=== PATIENT | female | born 1925 | race African-American/Black ===

== ENCOUNTER 2016-03-20 13:03 | Observation (INO) ==
--- NOTE | 2016-03-20 13:38 | EKG Report ---
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
--- NOTE | 2016-03-20 13:50 | XRay Report ---
Referring Physician: Tboy Rosario Exam: XR chest 1V portable Date: March 20, 2016 at 1:27 PM Reason: Syncope Comparison: Chest one view portable February 20, 2016 Findings: A right-sided dialysis catheter is again present. The cardiac silhouette is normal in size. There is minimal atelectasis at the lung bases, but no pneumothorax or definite pleural fluid is identified. No acute osseous process is seen. Kyphoplasty/vertebroplasty change is noted at the lower thoracic and upper lumbar spine. Impression: Minimal bibasilar atelectasis PROCEDURE INTERPRETED AT [facility] DEPARTMENT OF RADIOLOGY Final Report Signed by: Dr. Jenni Farmer
[2016-03-20 13:55] LABS: Basophils % 0.2 % (0.0-0.8); Eosinophils % 0.1 % (0.00-10.9); Hematocrit 35.5 VOL% (35.7-47.0); Hemoglobin 12.2 GM/DL (12.0-16.0); Immature Granulocytes % 0.3 %; Immature Granulocytes Absolute 0.04 #; Lymphocytes # 1.1 10*3/uL (1.4-4.0); Lymphocytes % 9.1 % (21.3-54.2); Mean Corpuscular HGB Conc 34.4 GM/DL (32-36); Mean Corpuscular Hemoglobin 30 PG (27-34); Mean Corpuscular Volume 88.5 FL (87-102); Mean Platelet Volume 12.8 FL (9.6-12.0); Monocytes # 0.8 10*3/uL (0.11-0.8); Monocytes % 6.8 % (1.7-12.7); Neutrophils # 9.7 10*3/uL (1.4-7.4); Neutrophils % 83.5 % (38.7-73.9); Platelet Count 96 10*3/uL (130-400); Red Blood Count 4.01 10*6/uL (3.8-5.5); White Blood Count 11.6 10*3/uL (4.5-13.71)
[2016-03-20 15:57] LABS: Calcium 8.6 MG/DL (8.5-10.1); Magnesium 2.4 MG/DL (1.8-2.4); Potassium 5.3 MMOL/L (3.5-5.1)
[2016-03-20] MEDS ORDERED: ALBUTEROL 2.5 MG/3 ML NEB RESP TX STA (16:28)
--- NOTE | 2016-03-20 16:40 | Emergency Department Note ---
Gadiel Liu Brooke, am scribing for, and in the presence of, Toby Rosario M.D. 13:42. Abraham Liu Howard T, M.D., personally performed the services described in this documentation, ascribed by Teresa Ramesh in my presence, and it is both accurate and complete [id number] . Arrival - Arrival Chief Complaint: Syncope Stated Complaint: Syncope ED Nursing Triage Note: Brought in by EMS-sent from dialysis for further evaluation of syncopal episode approximately 1230 today. Nursing staff reports that patient's BP dropped to 50/33 before she passed out. Mode of Arrival: Stretcher Limitations: No Limitations Source: Patient, Family, RN Notes Reviewed Time Seen by Provider: 03/20/16 13:21 - History of Present Illness HPI Narrative: Patient is a 89 year old female who presents to the ED following a syncopal episode that happened while at dialysis today. Patient says she had just started her treatment when it happened. She says she was eating some chips and then was waking up after the syncopal episode. She says she feels "pretty good" now and denies any trouble breathing or any pain. She says she has had syncopal episodes in the past where her blood pressure was low. Patient says sometimes, after dialysis, she does feel dizzy. Patient says she has had a chest cold for the past week and missed her dialysis treatment on Thursday. She says she has a productive cough but denies having any fever or vomiting. She does not have any lung problems that she knows of. Patient has been eating and drinking good until breakfast this morning. Patient has PMHx of CAD, HTN, RA, and renal failure. She gets dialyzed on Thursday, , and Thursday. Date of Last Menstrual Period: hysterectomy Allergies/Adverse Reactions: Allergies Allergy/AdvReac Type Severity Reaction Status Date / Time Iodinated Contrast Media - AdvReac Unknown Unknown/Unable Verified 10/22/15 12: 20 IV Dye to obtain Home Medications: Home Medications Medication Instructions Recorded Confirmed Type Levothyroxine Tab [Synthroid Tab] 50 mcg PO DAILY@0700 06/14/14 02/20/16 History Magnesium 64 mg PO DAILY 06/14/14 02/20/16 History Omeprazole [Prilosec] 20 mg PO DAILY 06/19/14 02/20/16 History Aspirin [Ecotrin] 81 mg PO QOTHER DAY 09/18/15 02/20/16 History fentaNYL [Fentanyl 25 mcg/hr Patch] 25 meq TRANSDERM Q3DAY 09/18/15 02/20/16 History Meclizine [Antivert] 25 mg PO Q6H PRN #30 tablet 09/24/15 02/20/16 Rx Nitroglycerin Sl Tab [Nitrostat] 0.4 mg SL Q5M PRN #0 tablet 09/24/15 02/20/16 Rx Amlodipine Besylate [Amlodipine 5 mg PO DAILY 11/01/15 02/20/16 History Besylate] Calcium Acetate 667 meq PO TID 11/01/15 02/20/16 History Review of System - Review of System 12 point system: reviewed and no additional remarkable complaints except as stated - Review of System Constitutional: Absent: fever Head/Ears/Nose/Throat: Present: other (chest cold) Respiratory: Present: cough (productive). Absent: respiratory distress Cardiovascular: Present: syncope Skin: Absent: rash Medical,Surgical,& Family Hx - Medical History Cardio: History of: CAD, Hypertension No history of: Aneurysm, Cardiac Dysrhythmia, Cerebrovascular Disease, Congenital Heart Disease, CHF, [place], Pacemaker, PVD, Valvular Heart Disease, Cardiovascular Problems Neurology: No history of: Seizures Endocrine: No history of: Dyslipidemia Rheumatology: History of;: Rheumatoid Arthritis Renal: History of: Dialysis (,,Thu), Renal Failure, Renal Problems Gastrointestinal: No history of: Gastrointestinal Bleed Musculoskeletal: No history of: Amputation Hematology: History of: Anemia Other: History of: Skin Problems (DRY RASH) - Surgical History Cardiac Surgeries: Sugical HX of: Cardiac Catheterization (STENT), Vascular Access Devices Patient Denies: Cardiac Surgery Thoracic Surgeries: Patient denies;: Lobectomy Neurologic Surgeries: Patient denies: Neurologic Surgery HEENT Surgeries: Surgical HX of: Thyroid Surgery Patient denies: Eye Surgery, Tonsilectomy & Adenoidectomy Abdominal Surgeries: Patient denies: Abdominal Surgery Reproductive Surgeries: Surgical HX of;: Gynecologic Surgery, Hysterectomy Patient denies;: Genitourinary Surgery - Family History Family History: Reports;: Family Hypertension - Social History Smoking Status: Never smoker Frequency of Alcohol Use: None Type of Drug Use: None Exam Vital Signs: Vital Signs Temperature 97 F L 01/05/17 13:27 Pulse Rate 80 03/20/16 15:30 Respiratory Rate 20 03/20/16 15:30 Blood Pressure 153/61 03/20/16 15:30 O2 Sat by Pulse Oximetry 100 03/20/16 15:30 - General General appearance: alert, in no apparent distress - Head Head exam: Present: atraumatic, normocephalic - Eye Eye exam: Present: normal appearance, PERRL, EOMI - ENT ENT exam: Present: normal exam - Neck Neck exam: Present: normal inspection - Chest Chest inspection: Present: normal inspection, symmetric chest wall rise - Respiratory Respiratory exam: Present: other (coarse breath sounds on left) - Cardiovascular Cardiovascular exam: Present: regular rate, normal rhythm, murmur (systolic) - Abdominal Exam Abdominal exam: Present: soft. Absent: distention, tenderness - Extremities Exam Extremities exam: Present: normal inspection - Back Exam Back exam: Present: normal inspection - Neurological Exam Neurological exam: Present: alert, oriented X3 - Psychiatric Psychiatric exam: Present: normal affect, normal mood - Skin Skin exam: Present: warm, dry, intact, normal color Course Course Narrative: Medical decision making: Patient continues to feel comfortable but family notes she has been wheezing more recently so we will do some breathing treatments and discussed with hospitalist for overnight observation considering she missed the last 2 dialysis appointments and had syncopal episode with low blood pressure earlier today. Results - Labs CBC & BMP: 03/20/16 13:18 03/20/16 13:18 Lab Results: I have reviewed the patients labs Labs: Laboratory Tests 03/20/16 13:18 Hct 35.5 L Plt Count 96 L MPV 12.8 H Neut % (Auto) 83.5 H Lymph % (Auto) 9.1 L Neut # (Auto) 9.7 H Lymph # (Auto) 1.1 L Laboratory Tests 03/20/16 13:18 Potassium 5.3 H Anion Gap 21.3 H BUN 52 H Creatinine 8.50 H - Diagnostic Findings Procedure: Chest x-ray: report reviewed by me (Minimal bibasilar atelectasis.) Disposition Clinical Impression: Syncope due to orthostatic hypotension Case discussed with: patient, patient's family Disposition: Disch/Xfer-Ipshort Term Hos Condition: Stable Time of Disposition: 16:40
[2016-03-20 16:44] LABS: Band Neutrophils 6 % (0-10); Lymphocytes 7 % (20-55); Platelet Estimate Normal; Segmented Neutrophils 81 % (50-85); Total Cells Counted 100
[2016-03-20] MEDS ORDERED: ALBUTEROL/IPRATROPIUM 3 ML NEB RESP TX PRN (16:48)
[2016-03-20] MEDS ORDERED: ONDANSETRON 4 MG/2 ML VIAL IV PRN (16:48)
[2016-03-20] MEDS ORDERED: ACETAMINOPHEN 325 MG TABLET PO PRN (16:48)
[2016-03-20] MEDS ORDERED: NITROGLYCERIN SL 0.4 MG TABLET SL PRN (17:08)
--- NOTE | 2016-03-20 17:15 | Hospitalist History & Physical ---
<Nicole Mcknight - Last Filed: 03/20/16 17:13> Assessment and Plan - Time spent with patient Time spent with patient: Greater than 30 minutes (1) Bronchitis Status: Acute Assessment and plan: duonebs and azithromycin Current Visit: Yes (2) HTN (hypertension) Status: Acute Assessment and plan: continue home meds Current Visit: Yes (3) Syncope due to orthostatic hypotension Status: Acute Assessment and plan: occurred during dialysis today. Now resolved. Current Visit: Yes (4) Lethargy Status: Acute Current Visit: No (5) End stage renal disease Status: Chronic Assessment and plan: Consult Dr. Damon. Consider dialysis during hospital stay due to patient missing dialysis thursday and half of today. Current Visit: No History of Present Illness History of present illness: Ms. Akins is a 89 year old female Home Medications Medication Instructions Recorded Confirmed Type RX: Levothyroxine Tab [Synthroid 50 mcg PO DAILY@0700 06/14/14 03/20/16 History Tab] RX: Magnesium 64 mg PO DAILY 06/14/14 03/20/16 History RX: Omeprazole [Prilosec] 20 mg PO DAILY 06/19/14 03/20/16 History RX: Aspirin [Ecotrin] 81 mg PO QOTHER DAY 09/18/15 03/20/16 History RX: Meclizine [Antivert] 25 mg PO Q6H PRN #30 tablet 09/24/15 03/20/16 Rx RX: Nitroglycerin Sl Tab 0.4 mg SL Q5M PRN #0 tablet 09/24/15 03/20/16 Rx [Nitrostat] RX: Calcium Acetate 1,334 mg PO TID W/MEALS 11/01/15 03/20/16 History HYDROcodone/ACETAMIN 7.5-325 1 tablet PO Q8H PRN 03/20/16 03/20/16 History [[place] 7.5-325] Allergies Allergy/AdvReac Type Severity Reaction Status Date / Time Iodinated Contrast Media - AdvReac Unknown Unknown/Unable Verified 10/22/15 12: 20 IV Dye to obtain Medical,Surgical,& Family Hx - Medical History Cardio: History of: CAD, Hypertension No history of: Aneurysm, Cardiac Dysrhythmia, Cerebrovascular Disease, Congenital Heart Disease, CHF, [place], Pacemaker, PVD, Valvular Heart Disease, Cardiovascular Problems Neurology: No history of: Seizures Endocrine: No history of: Dyslipidemia Rheumatology: History of;: Rheumatoid Arthritis Renal: History of: Dialysis (,,Thu), Renal Failure, Renal Problems Gastrointestinal: No history of: Gastrointestinal Bleed Musculoskeletal: No history of: Amputation Hematology: History of: Anemia Other: History of: Skin Problems (DRY RASH) - Surgical History Cardiac Surgeries: Sugical HX of: Cardiac Catheterization (STENT), Vascular Access Devices Patient Denies: Cardiac Surgery Thoracic Surgeries: Patient denies;: Lobectomy Neurologic Surgeries: Patient denies: Neurologic Surgery HEENT Surgeries: Surgical HX of: Thyroid Surgery Patient denies: Eye Surgery, Tonsilectomy & Adenoidectomy Abdominal Surgeries: Patient denies: Abdominal Surgery Reproductive Surgeries: Surgical HX of;: Gynecologic Surgery, Hysterectomy Patient denies;: Genitourinary Surgery - Family History Family History: Reports;: Family Hypertension - Social History Smoking Status: Never smoker Frequency of Alcohol Use: None Type of Drug Use: None 12 point system: reviewed and no additional remarkable complaints except as stated - Constitutional Constitutional: Present: as per HPI, fatigue, lethargy, malaise - Cardiovascular Cardiovascular: Present: dyspnea Exam - Constitutional Vitals: Period Temp Pulse Resp BP Sys/Alcazar Pulse Ox Last 24 Hr 97 F-97.0 F 79-87 17-23 146-174/61-74 100-100 Results - Labs CBC & BMP: 03/20/16 13:18 03/20/16 13:18 Lab Results: I have reviewed the past 24 hour labs Quality Measures - VTE Contraindication to Pharmacological VTE Prophylaxis: Already on Theraputic Agent , No Prophylaxis Needed <Zhane Savage - Last Filed: 03/21/16 07:45> Assessment and Plan - Time spent with patient Time spent with patient: Greater than 30 minutes (1) Syncope due to orthostatic hypotension Status: Acute Assessment and plan: I have seen and examined this patient independently in the emergency department in room 9. Her family members were at the bedside including both sons and a [id number]. The patient's being admitted to observation. Treatment for bronchitis has been started with duo nebs and azithromycin. Consultation for nephrology Dr. Damon has been placed. We are recommending completion of her dialysis treatment to ensure no fluid overload is contributing to her cough or shortness of breath. Carotid ultrasound has also been ordered. I had a lengthy discussion with the patient and her family at the bedside in the emergency department regarding her admission to observation status. They verbalized their understanding and agreed to move forward. Current Visit: Yes (2) End stage renal disease Status: Chronic Current Visit: No (3) Bronchitis Status: Acute Current Visit: Yes (4) HTN (hypertension) Status: Acute Current Visit: Yes Qualifiers: Hypertension type: essential hypertension Qualified Code(s): I10 - Essential (primary) hypertension History of Present Illness Chief complaint: syncope History of present illness: Ms. Akins is a 89 year old female that presented to the emergency department via ambulance after she had a syncopal episode in dialysis. The patient is typically dialyzed on Thursday and Thursday. Her child advocate is Dr. Kurt Damon. She reports starting her dialysis treatment which usually runs for approximately 4 hours. [place] through dialysis she had a drop in her blood pressure and passed out. She remembers eating some chips and the next thing she knew she woke up laying flat with nurses surrounding her. There was no trauma as she was sitting in her dialysis chair when she had syncope. She missed her Thursday dialysis session. She reports having a cough and cold with some congestion over the last week. Her family reports that she has had some frequent syncope episodes at home over the last several months. Ms. Rizzo is elderly and frail. I've been consulted from the emergency department to admit her to the hospital for further evaluation of her syncope as well as consultation with nephrology regarding completion of her dialysis treatment. There is no evidence of pneumonia on chest x-ray and her white blood cell count is normal. She does not appear septic. 12 point system: reviewed and no additional remarkable complaints except as stated - Respiratory Respiratory: Present: cough, dyspnea - Neurological Neurological: Present: syncope Exam - Constitutional Vitals: Period Temp Pulse Resp BP Sys/Alcazar Pulse Ox Last 24 Hr 73-83 18-22 137-174/56-66 100-100 General appearance: no acute distress - Head Head exam: Present: normal inspection, normocephalic, atraumatic - Eye Eye exam: Present: EOMI Pupils: Present: ESTHER - ENT ENT exam: Present: normal exam - Respiratory Respiratory exam: Present: rales, rhonchi - Cardiovascular Cardiovascular exam: Present: regular rate and rhythm - GI/Abdominal GI/Abdominal exam: Present: normal bowel sounds, soft. Absent: tenderness, rebound - Extremities Exam Extremities exam: Absent: edema - Neurological Exam Neurological exam: Present: alert, oriented X3 - Psychiatric Psychiatric exam: Present: normal affect, normal mood - Skin Skin exam: Present: normal color, warm, dry Results - Labs CBC & BMP: 03/21/16 05:00 03/21/16 05:00 Lab Results: I have reviewed the past 24 hour labs
[2016-03-21 05:27] LABS: Basophils % 0.1 % (0.0-0.8); Eosinophils # 0.1 10*3/uL (0.0-0.87); Eosinophils % 0.7 % (0.00-10.9); Hematocrit 32.2 VOL% (35.7-47.0); Hemoglobin 10.7 GM/DL (12.0-16.0); Immature Granulocytes % 0.8 %; Immature Granulocytes Absolute 0.08 #; Lymphocytes # 1.2 10*3/uL (1.4-4.0); Lymphocytes % 12.1 % (21.3-54.2); Mean Corpuscular HGB Conc 33.2 GM/DL (32-36); Mean Corpuscular Hemoglobin 30 PG (27-34); Mean Corpuscular Volume 89.7 FL (87-102); Mean Platelet Volume 12.6 FL (9.6-12.0); Monocytes # 0.8 10*3/uL (0.11-0.8); Monocytes % 7.8 % (1.7-12.7); Neutrophils # 8.1 10*3/uL (1.4-7.4); Neutrophils % 78.5 % (38.7-73.9); Platelet Count 95 10*3/uL (130-400); Red Blood Count 3.59 10*6/uL (3.8-5.5); Red Cell Distribution Width 16.1 % (9.3-17.3); White Blood Count 10.3 10*3/uL (4.5-13.71)
[2016-03-21 05:49] LABS: Band Neutrophils 2 % (0-10); Lymphocytes 15 % (20-55); Segmented Neutrophils 76 % (50-85); Total Cells Counted 100
[2016-03-21 05:50] LABS: Burr Cells Slight; Elliptocytes Few; Hypochromasia 1+; Macrocytosis Slight; Platelet Estimate Decreased
[2016-03-21 06:09] LABS: Calcium 7.7 MG/DL (8.5-10.1); Potassium 5.5 MMOL/L (3.5-5.1)
[2016-03-21] MEDS: AZITHROMYCIN 250 MG TABLET PO SCH (08:37)
[2016-03-21] MEDS: DOCUSATE SODIUM 100 MG CAPSULE PO PRN (08:38)
[2016-03-21] MEDS: CALCIUM ACETATE 667 MG CAPSULE PO SCH ×3 (08:38→17:26)
[2016-03-21] MEDS: amLODIPine 5 MG TABLET PO SCH (08:38)
[2016-03-21] MEDS: LEVOTHYROXINE 50 MCG TABLET PO SCH (08:39)
[2016-03-21] MEDS: PANTOPRAZOLE 40 MG TABLET PO SCH (08:39)
[2016-03-21] MEDS ORDERED: PANTOPRAZOLE 40 MG TABLET PO SCH (09:00)
--- NOTE | 2016-03-21 09:53 | Hospitalist Progress Note ---
Assessment and Plan (1) Syncope due to orthostatic hypotension Status: Acute Assessment and plan: Consultation for nephrology Dr. Damon has been placed. We are recommending completion of her dialysis treatment to ensure no fluid overload is contributing to her cough or shortness of breath. Carotid ultrasound has also been ordered. Current Visit: Yes (2) End stage renal disease Status: Chronic Current Visit: No (3) Bronchitis Status: Acute Assessment and plan: Continue azithromycin and breathing treatments. Current Visit: Yes (4) HTN (hypertension) Status: Acute Current Visit: Yes Qualifiers: Hypertension type: essential hypertension Qualified Code(s): I10 - Essential (primary) hypertension Hospitalist: Subjective Interval history: Patient seen and examined. No acute events overnight. No further syncopal episodes. Nephrology consult pending. She still has a cough but looks and feels better today. Exam - Constitutional Vitals: Period Temp Pulse Resp BP Sys/Alcazar Pulse Ox Last 24 Hr 98.9 F-99.2 F 69-83 18-22 137-174/56-71 100-100 General appearance: no acute distress - Head Head exam: Present: normal inspection, normocephalic - Respiratory Respiratory exam: Present: rhonchi - Cardiovascular Cardiovascular exam: Present: regular rate and rhythm - GI/Abdominal GI/Abdominal exam: Present: normal bowel sounds, soft. Absent: tenderness, rebound - Extremities Exam Extremities exam: Absent: edema - Neurological Exam Neurological exam: Present: alert, oriented X3 - Psychiatric Psychiatric exam: Present: normal affect, normal mood - Skin Skin exam: Present: normal color, warm Results - Labs CBC & BMP: 03/21/16 05:00 03/21/16 05:00 Lab Results: I have reviewed the past 24 hour labs Quality Measures - VTE Contraindication to Pharmacological VTE Prophylaxis: Already on Theraputic Agent , No Prophylaxis Needed Specialty Discharge - Follow Up or Referrals - Discharge Medications No Action RX: Levothyroxine Tab [Synthroid Tab] 50 mcg PO DAILY@0700 RX: Magnesium 64 mg PO DAILY RX: Omeprazole [Prilosec] 20 mg PO DAILY RX: Aspirin [Ecotrin] 81 mg PO QAM RX: Meclizine [Antivert] 25 mg PO Q6H PRN #30 tablet PRN Reason: Dizziness RX: Nitroglycerin Sl Tab [Nitrostat] 0.4 mg SL Q5M PRN #0 tablet PRN Reason: Chest Pain RX: Calcium Acetate 1,334 mg PO TID W/MEALS HYDROcodone/ACETAMIN 7.5-325 [[place] 7.5-325] 1 tablet PO Q8H PRN PRN Reason: Pain
--- NOTE | 2016-03-21 11:26 | Nephrology Consult Note ---
History of Present Illness Chief complaint: ESRD, syncope History of present illness: Ms. Akins is a 89 year old female with several chronic medical problems including ESRD. She reports a nonproductive cough for several days. She missed dialysis on Thursday. Yesterday she had a syncopal episode during dialysis. Her blood pressure dropped to systolic less than 60. She had no neurologic symptoms prior to this. Mental status was normal when she regained consciousness. She denies fever or chills. She's had no GI symptoms. Home Medications Medication Instructions Recorded Confirmed Type Levothyroxine Tab [Synthroid Tab] 50 mcg PO DAILY@0700 06/14/14 03/21/16 History Magnesium 64 mg PO DAILY 06/14/14 03/21/16 History Omeprazole [Prilosec] 20 mg PO DAILY 06/19/14 03/21/16 History Aspirin [Ecotrin] 81 mg PO QAM 09/18/15 03/21/16 History Meclizine [Antivert] 25 mg PO Q6H PRN #30 tablet 09/24/15 03/20/16 Rx Nitroglycerin Sl Tab [Nitrostat] 0.4 mg SL Q5M PRN #0 tablet 09/24/15 03/20/16 Rx Calcium Acetate 1,334 mg PO TID W/MEALS 11/01/15 03/21/16 History HYDROcodone/ACETAMIN 7.5-325 1 tablet PO Q8H PRN 03/20/16 03/21/16 History [[place] 7.5-325] Allergies Allergy/AdvReac Type Severity Reaction Status Date / Time Iodinated Contrast Media - AdvReac Unknown Unknown/Unable Verified 10/22/15 12: 20 IV Dye to obtain Medical,Surgical,& Family Hx - Medical History Cardio: History of: CAD, Hypertension No history of: Aneurysm, Cardiac Dysrhythmia, Cerebrovascular Disease, Congenital Heart Disease, CHF, [place], Pacemaker, PVD, Valvular Heart Disease, Cardiovascular Problems Neurology: History of: Vertigo No history of: Seizures Endocrine: History of: Thyroid Disorder No history of: Dyslipidemia Rheumatology: History of;: Rheumatoid Arthritis Respiratory: History of: Respiratory Problems (cough currently) Renal: History of: Dialysis (,,Thu), Renal Failure, Renal Problems Gastrointestinal: History of: GERD No history of: Gastrointestinal Bleed Musculoskeletal: History of: Back/Neck Problems (back surg) No history of: Amputation Hematology: History of: Anemia Other: History of: Skin Problems (DRY RASH) - Surgical History Cardiac Surgeries: Sugical HX of: Cardiac Catheterization (STENT), Vascular Access Devices Patient Denies: Cardiac Surgery Thoracic Surgeries: Patient denies;: Organ Transplant, Lobectomy Neurologic Surgeries: Patient denies: Neurologic Surgery HEENT Surgeries: Surgical HX of: Thyroid Surgery Patient denies: Eye Surgery, Tonsilectomy & Adenoidectomy Abdominal Surgeries: Patient denies: Abdominal Surgery Reproductive Surgeries: Surgical HX of;: Gynecologic Surgery, Hysterectomy Patient denies;: Genitourinary Surgery Orthopedic Surgeries: Surgical HX of;: Orthopedic Surgery (right knee replacement,back surg), Total Knee Replacement - Family History Family History: Reports;: Family Hypertension - Social History Smoking Status: Never smoker Frequency of Alcohol Use: None Type of Drug Use: None Review of Systems 12 point system: reviewed and no additional remarkable complaints except as stated Exam - Vital Signs Vital signs: Period Temp Pulse Resp BP Sys/Alcazar Pulse Ox Last 24 Hr 98.4 F-99.2 F 69-83 18-22 137-174/56-71 98-100 Exam: Gen.: Alert and oriented x3. ENT: Pupils equal round reactive to light. EOMs intact. Mucous membranes moist. Neck: Supple. No JVD or bruit. Cardiovascular: Regular rate and rhythm. 2/6 systolic murmur Lungs: Clear Abdomen: Soft. Nontender. Positive bowel sounds. No organomegaly Extremities: No edema Results - Labs CBC & BMP: 03/21/16 05:00 03/21/16 05:00 Assessment and Plan (1) End stage renal disease Status: Chronic Assessment and plan: 89-year-old woman admitted with: * Syncope. This is DVT transient hypotension during dialysis. She does not appear to be volume overloaded. She is seen during dialysis today. Blood pressure is stable. Mental status normal * ESRD. Stable during dialysis today * Bronchitis. Lungs are clear. Chest x-ray shows no infiltrate. Agree with current antibiotics * Rheumatoid arthritis * CAD Current Visit: No (2) Syncope Status: Acute Current Visit: Yes (3) Bronchitis Status: Acute Current Visit: Yes (4) HTN (hypertension) Status: Acute Current Visit: Yes Qualifiers: Hypertension type: essential hypertension Qualified Code(s): I10 - Essential (primary) hypertension (5) Coronary artery disease Status: Chronic Current Visit: No Specialty Discharge - Follow Up or Referrals - Discharge Medications No Action Levothyroxine Tab [Synthroid Tab] 50 mcg PO DAILY@0700 Magnesium 64 mg PO DAILY Omeprazole [Prilosec] 20 mg PO DAILY Aspirin [Ecotrin] 81 mg PO QAM Meclizine [Antivert] 25 mg PO Q6H PRN #30 tablet PRN Reason: Dizziness Nitroglycerin Sl Tab [Nitrostat] 0.4 mg SL Q5M PRN #0 tablet PRN Reason: Chest Pain Calcium Acetate 1,334 mg PO TID W/MEALS HYDROcodone/ACETAMIN 7.5-325 [[place] 7.5-325] 1 tablet PO Q8H PRN PRN Reason: Pain
--- NOTE | 2016-03-21 12:22 | Ultrasound Report ---
Exam: US carotid duplex BI Date: 03/21/2016 7:45 AM Indication: Syncope Technique: Duplex scan of the bilateral carotid arteries using B-mode/grayscale imaging and Doppler spectral analysis and color flow. Findings: Right Flow velocities centimeters per second Common carotid artery: 157 Proximal ICA: 97 Distal ICA: 61 External carotid artery: 85 Vertebral artery: 41 with antegrade flow ICA/CCA ratio: 0.6 Measurements in millimeters Distal ICA: 5.9 Left: Flow velocities centimeters per second Common carotid artery: 131 Proximal ICA: 61 Distal ICA: 53 External carotid artery: 134 Vertebral artery: 51 with antegrade flow ICA/CCA ratio: 0.5 Measurements in millimeters Distal ICA: 5.8 Minimal atherosclerotic plaque is noted within the bilateral carotid bulbs and proximal internal carotid arteries, slightly more prominent left. No significant luminal stenosis is evident within either internal carotid artery by grayscale/color Doppler imaging. Color flow is present in all visualized vessels with Doppler analysis. Impression: 1. No significant luminal stenosis within either internal carotid artery with scattered atherosclerotic plaque noted bilaterally, slightly more prominent on the left. Estimated luminal stenosis bilaterally is within the 16-49% range. Today studies were performed utilizing indirect NASCET criteria The ultrasound images were stored and captured PROCEDURE INTERPRETED AT [facility] DEPARTMENT OF RADIOLOGY Final Report Signed by: Angel Levine
[2016-03-22] MEDS: LEVOTHYROXINE 50 MCG TABLET PO SCH (06:33)
[2016-03-22] MEDS ORDERED: ASPIRIN EC 81 MG TABLET PO SCH (09:00)
[2016-03-22] MEDS: CALCIUM ACETATE 667 MG CAPSULE PO SCH ×3 (09:32→17:22)
[2016-03-22] MEDS: amLODIPine 5 MG TABLET PO SCH ×2 (09:34→09:46)
[2016-03-22] MEDS: AZITHROMYCIN 250 MG TABLET PO SCH (09:35)
[2016-03-22] MEDS: PANTOPRAZOLE 40 MG TABLET PO SCH (09:35)
[2016-03-22] MEDS: DOCUSATE SODIUM 100 MG CAPSULE PO PRN (09:47)
--- NOTE | 2016-03-22 10:21 | Nephrology Progress Note ---
Nephrology - PN: Subj Interval history: Patient denies shortness of breath. Review of systems GI she denies nausea or vomiting Physical exam general patient's in no acute distress, she has no pitting edema Assessment/plan 1. End-stage renal disease-this patient had a syncopal spell on dialysis [facility] cancer treatment was cut short, she dialyzed yesterday. We will plan on dialyzing her for about 3 hours today to get her back on her regular shift. 2. Syncope patient had no further episodes 3. Anemia-patient's hematocrit is 32% 4. Secondary hyperparathyroidism will continue PhosLo Exam (PN)-Nephrology - Vital Signs Vital signs: Period Temp Pulse Resp BP Sys/Al[place]azar Pulse Ox Last 24 Hr 97.1 F-99.2 F 54-81 16-20 116-136/50-57 97-100 - Lab 03/21/16 05:00 03/21/16 05:00 Most recent lab results Calcium 7.7 MG/DL (8.5-10.1) L 03/21/16 05:00 Magnesium 2.4 MG/DL (1.8-2.4) 03/20/16 13:18 Specialty Discharge - Follow Up or Referrals - Discharge Medications No Action Levothyroxine Tab [Synthroid Tab] 50 mcg PO DAILY@0700 Magnesium 64 mg PO DAILY Omeprazole [Prilosec] 20 mg PO DAILY Aspirin [Ecotrin] 81 mg PO QAM Meclizine [Antivert] 25 mg PO Q6H PRN #30 tablet PRN Reason: Dizziness Nitroglycerin Sl Tab [Nitrostat] 0.4 mg SL Q5M PRN #0 tablet PRN Reason: Chest Pain Calcium Acetate 1,334 mg PO TID W/MEALS HYDROcodone/ACETAMIN 7.5-325 [[place] 7.5-325] 1 tablet PO Q8H PRN PRN Reason: Pain
--- NOTE | 2016-03-22 11:11 | Hospitalist Progress Note ---
Assessment and Plan (1) Syncope due to orthostatic hypotension Status: Acute Assessment and plan: Consultation from nephrology reviewed. repeat dialysis today for 3 hrs per nephro. Current Visit: Yes (2) End stage renal disease Status: Chronic Current Visit: No (3) Bronchitis Status: Acute Assessment and plan: Continue azithromycin and breathing treatments. Current Visit: Yes (4) HTN (hypertension) Status: Acute Current Visit: Yes Qualifiers: Hypertension type: essential hypertension Qualified Code(s): I10 - Essential (primary) hypertension Hospitalist: Subjective Interval history: Patient seen and examined. No acute events overnight. She underwent dialysis yesterday without any problems. She feels better this morning. Nephrology note reviewed. Repeat dialysis treatment for 3 hours plan for today. Likely discharge home tomorrow. Case discussed with the patient and her son at the bedside. Exam - Constitutional Vitals: Period Temp Pulse Resp BP Sys/[place]azar Pulse Ox Last 24 Hr 97.1 F-99.2 F 54-81 16-20 116-136/50-57 97-100 General appearance: no acute distress - Head Head exam: Present: normal inspection, normocephalic - Eye Eye exam: Present: EOMI - Respiratory Respiratory exam: Present: rhonchi, wheezes - Cardiovascular Cardiovascular exam: Present: regular rate and rhythm - GI/Abdominal GI/Abdominal exam: Present: normal bowel sounds, soft - Extremities Exam Extremities exam: Absent: edema - Neurological Exam Neurological exam: Present: alert, oriented X3 - Psychiatric Psychiatric exam: Present: normal affect, normal mood - Skin Skin exam: Present: normal color, warm Results - Labs CBC & BMP: 03/21/16 05:00 03/21/16 05:00 Lab Results: I have reviewed the past 24 hour labs Quality Measures - VTE Contraindication to Pharmacological VTE Prophylaxis: Already on Theraputic Agent , No Prophylaxis Needed Specialty Discharge - Follow Up or Referrals - Discharge Medications No Action Levothyroxine Tab [Synthroid Tab] 50 mcg PO DAILY@0700 Magnesium 64 mg PO DAILY Omeprazole [Prilosec] 20 mg PO DAILY Aspirin [Ecotrin] 81 mg PO QAM Meclizine [Antivert] 25 mg PO Q6H PRN #30 tablet PRN Reason: Dizziness Nitroglycerin Sl Tab [Nitrostat] 0.4 mg SL Q5M PRN #0 tablet PRN Reason: Chest Pain Calcium Acetate 1,334 mg PO TID W/MEALS HYDROcodone/ACETAMIN 7.5-325 [[place] 7.5-325] 1 tablet PO Q8H PRN PRN Reason: Pain
--- NOTE | 2016-03-22 12:41 | Dialysis Note ---
Dialysis Note - Dialysis Note Patient is seen on hemodialysis she is tolerating this well we'll continue her treatment unchanged
[2016-03-23] MEDS: LEVOTHYROXINE 50 MCG TABLET PO SCH (06:19)
[2016-03-23] MEDS: AZITHROMYCIN 250 MG TABLET PO SCH (09:02)
[2016-03-23] MEDS: PANTOPRAZOLE 40 MG TABLET PO SCH (09:03)
[2016-03-23] MEDS: amLODIPine 5 MG TABLET PO SCH (09:03)
[2016-03-23] MEDS: CALCIUM ACETATE 667 MG CAPSULE PO SCH ×2 (09:03→12:10)
[2016-03-23] MEDS ORDERED: PSEUDOEPHEDRINE 30 MG TABLET PO PRN (09:12)
--- NOTE | 2016-03-23 09:12 | Nephrology Progress Note ---
Nephrology - PN: Subj Interval history: Patient complains of sinus congestion. Review of systems GI-she complains of constipation Physical exam general the patient's chronically ill-appearing but in no acute distress Assessment/plan 1. End-stage renal disease we'll continue hemodialysis support 2. Syncope 3. Anemia 4. Secondary hyperparathyroidism 5. Congestion I'll give her some Sudafed. Exam (PN)-Nephrology - Vital Signs Vital signs: Period Temp Pulse Resp BP Sys/Alcazar Pulse Ox Last 24 Hr 98.1 F-98.7 F 64-75 15-20 137-156/61-74 97-100 - Lab 03/21/16 05:00 03/21/16 05:00 Most recent lab results Calcium 7.7 MG/DL (8.5-10.1) L 03/21/16 05:00 Magnesium 2.4 MG/DL (1.8-2.4) 03/20/16 13:18 Specialty Discharge - Follow Up or Referrals - Discharge Medications No Action Levothyroxine Tab [Synthroid Tab] 50 mcg PO DAILY@0700 Magnesium 64 mg PO DAILY Omeprazole [Prilosec] 20 mg PO DAILY Aspirin [Ecotrin] 81 mg PO QAM Meclizine [Antivert] 25 mg PO Q6H PRN #30 tablet PRN Reason: Dizziness Nitroglycerin Sl Tab [Nitrostat] 0.4 mg SL Q5M PRN #0 tablet PRN Reason: Chest Pain Calcium Acetate 1,334 mg PO TID W/MEALS HYDROcodone/ACETAMIN 7.5-325 [[place] 7.5-325] 1 tablet PO Q8H PRN PRN Reason: Pain
--- NOTE | 2016-03-23 09:52 | Discharge Summary ---
Hospital Course - Hospital Course Hospital Course: Ms. Rizzo is an 89-year-old -[place] female that was admitted through the emergency department after she had a syncopal episode in dialysis. She was found to have an acute bronchitis and had hypotension that resolved in the emergency department. She was admitted to the hospitalist service for evaluation by nephrology. She underwent a repeat dialysis treatment the following day and again yesterday. The patient had been ill at home for several days and had missed her dialysis appointment on Thursday. She passed out fpc through her dialysis appointment on . She was re-dialyzed on Thursday and then again on Thursday which is her regular day for dialysis. She is being discharged home today with a prescription for azithromycin to complete a course for her bronchitis. She is also given a prescription for Mucinex and Flonase nasal spray for symptomatic relief. She has no evidence of acute bacterial infection or pneumonia on chest x-ray. She has been afebrile during this hospitalization. She is reached maximal benefit from this inpatient hospitalization and is ready for discharge. 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 - Time spent with patient Time with patient DS: Greater than 30 minutes Diagnosis - Discharge Diagnosis (1) Syncope due to orthostatic hypotension Status: Acute (2) End stage renal disease Status: Chronic (3) Bronchitis Status: Acute (4) HTN (hypertension) Status: Chronic Specialty Discharge - Follow Up or Referrals - Discharge Medications No Action Levothyroxine Tab [Synthroid Tab] 50 mcg PO DAILY@0700 Magnesium 64 mg PO DAILY Omeprazole [Prilosec] 20 mg PO DAILY Aspirin [Ecotrin] 81 mg PO QAM Meclizine [Antivert] 25 mg PO Q6H PRN #30 tablet PRN Reason: Dizziness Nitroglycerin Sl Tab [Nitrostat] 0.4 mg SL Q5M PRN #0 tablet PRN Reason: Chest Pain Calcium Acetate 1,334 mg PO TID W/MEALS HYDROcodone/ACETAMIN 7.5-325 [[place] 7.5-325] 1 tablet PO Q8H PRN PRN Reason: Pain Discharge Plan - Discharge Data Disposition: Disch To Home/Self Care Condition at Discharge: Stable Discharge Diet: advance to your usual diet, other (renal diet) Activity: resume usual activities as tolerated - Discharge Medications New Albuterol Inhaler [Proventil Inhaler] 2 puff INH Q4H PRN #1 inhaler PRN Reason: Shortness Of Breath/Wheezing Azithromycin Tab [Zithromax Tab] 250 mg PO DAILY #3 tablet Fluticasone 50 Mcg Nasal [place] [Flonase Nasal [place]] 1 spray BOTH NARES BID # 16 gm Guaifenesin [Mucinex] 1,200 mg PO BID #30 tbbp.12hr Pseudoephedrine [Sudafed] 30 mg PO Q6H PRN #30 tablet PRN Reason: Congestion Continue Levothyroxine Tab [Synthroid Tab] 50 mcg PO DAILY@0700 Magnesium 64 mg PO DAILY Omeprazole [Prilosec] 20 mg PO DAILY Aspirin [Ecotrin] 81 mg PO QAM Meclizine [Antivert] 25 mg PO Q6H PRN #30 tablet PRN Reason: Dizziness Nitroglycerin Sl Tab [Nitrostat] 0.4 mg SL Q5M PRN #0 tablet PRN Reason: Chest Pain Calcium Acetate 1,334 mg PO TID W/MEALS HYDROcodone/ACETAMIN 7.5-325 [[place] 7.5-325] 1 tablet PO Q8H PRN PRN Reason: Pain - Follow Up or Referral Follow Up: Kurt Damon MD [Family Provider] - - Forms/Instructions Exam - Constitutional Vitals: Period Temp Pulse Resp BP Sys/Alcazar Pulse Ox Last 24 Hr 98.1 F-98.7 F 64-75 15-20 137-156/61-74 97-100 General appearance: no acute distress - Head Head exam: Present: normal inspection, normocephalic - Eye Eye exam: Present: EOMI - Respiratory Respiratory exam: Present: clear to auscultation bilaterally - Cardiovascular Cardiovascular exam: Present: regular rate and rhythm - GI/Abdominal GI/Abdominal exam: Present: normal bowel sounds, soft - Extremities Exam Extremities exam: Absent: edema DS: Provider Date of admission: 03/20/16 16:48 Primary care physician: . No PCP Attending physician on admission: Zhane Savage MD Consults: 03/20/16 20:39 Consult to Pharmacy [CONS] Routine Reason for Pharmacy Consult: Adjust Meds Renal Funct 03/21/16 09:54 Consult to Physical Therapy [CONS] Routine Reason for Physical Therapy: Evaluate and Treat Discharging clinician: Zhane Savage MD Expected date of discharge: 03/23/16
[2016-03-23 12:56] VITALS: BP 149/61
== END 2016-03-23 14:10 | disposition home or self-care (01) ==
LOC: EDBD → EDUNIT# → N.ED 13:03 → N.EDINP 13:03 → N.2E 20:20
PROVIDERS: ADMIT Family Medicine; ATTEND Family Medicine